=== PATIENT | male | born 1975 | race Caucasian/White ===

== ENCOUNTER 2020-01-20 16:44 | Emergency (ER) | payer OTHER ==
--- NOTE | 2020-01-20 18:50 | EDM.PDOC ---
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 He states that he was walking and fell down "somewhat hard" but got back up and was able to ambulate and really did not have much in the way of pain. Later on he noticed that he had a laceration about his patellar area. He notes that he was able to continue to ambulate just fine. He really did not have any pain at all with this. There is no significant bleeding. Interestingly, his pants had no evidence of any hole at all. This certainly help to exclude any contamination or foreign body. 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 His tetanus is up-to-date. He is reliable to return with any issues whatsoever in terms of his wound healing. He denies any other injury whatsoever including any head injury, loss of consciousness, or neck discomfort. Again, he has been able to fully ambulate, flex and extend his knee , and has really no pain to his patella as well as distal thigh or proximal lower leg musculoskeletal tissues whatsoever. Left Knee Pain Score (Numeric/FACES): 2 - Related Data Allergies Allergy/AdvReac Type Severity Reaction Status Date / Time No Known Allergies Allergy Verified 01/20/20 17:13 Home Meds: Home Meds atorvaSTATin [Lipitor] 40 mg PO DAILY 01/20/20 [History] lisinopriL [Zestril] 10 mg PO DAILY 01/20/20 [History] Past Medical History - Past Health History Medical/Surgical History: Denies Medical/Surgical History Cardiovascular History: Reports: High Cholesterol, Hypertension Social & Family History - Family History Family Medical History: Noncontributory ED ROS GENERAL - Review of Systems Review Of Systems: See Below Constitutional: Reports: No Symptoms Musculoskeletal: Reports: No Symptoms. Denies: Joint Swelling, Muscle Pain, Muscle Stiffness Neurological: Reports: No Symptoms ED EXAM, SKIN/RASH Exam: See Below Exam Limited By: No Limitations General Appearance: Alert, WD/WN, No Apparent Distress Eye Exam: Bilateral Eye: EOMI, Normal Inspection Ears: Normal External Exam, Hearing Grossly Normal Nose: Normal Inspection Throat/Mouth: Normal Inspection Head: Atraumatic, Normocephalic Neck: Normal Inspection, Supple, Non-Tender, Full Range of Motion Respiratory/Chest: No Respiratory Distress GI/Abdominal: No Distention Back Exam: Normal Inspection Extremities: Non-Tender, Normal Capillary Refill Neurological: Alert, Oriented, Normal Cognition, Normal Gait, No Motor/Sensory Deficits Psychiatric: Normal Affect, Normal Mood Skin: Wound/Incision (Inspection of his knee reveals an 8 cm x 6-1/2 cm flap with apex pointing medially along the lower half of his patellar area. This flap appears to have excellent perfusion in terms of the triangular apex. This extends below the subcutaneous fat layer and just encroaches along the most superficial layer of fascia. This wound was quite clean without any active bleeding, and I was able to retract the flap and visualize that there does not appear to be any further involvement in violating the joint capsule at all. His patellar tendon is palpated and active and passive range of motion of his knee is complete. Ligaments are intact to distraction. His patella is palpated and there is no tenderness. There is no other bony tenderness to careful palpation around his entire knee. Inspection of the wound reveals no foreign bodies or contamination. The flap actually falls back into place nicely. I anesthetized the wound with 3 mL's of lidocaine with epinephrine mixed with 7 mL's of bupivacaine. The patient tolerated this well. ). No: Cool, Cyanosis, Ecchymosis, Erythema, Excoriations Course - Vital Signs Last Recorded V/S: Last Vital Signs Temp 98 F 01/20/20 17:32 Pulse 88 01/20/20 18:15 Resp 20 01/20/20 17:32 BP 150/90 H 01/20/20 18:15 Pulse Ox 100 01/20/20 17:32 Departure - Departure Time of Disposition: 18:00 Disposition: Home, Self-Care 01 Clinical Impression: Laceration - Discharge Information *PRESCRIPTION DRUG MONITORING PROGRAM REVIEWED*: No *COPY OF PRESCRIPTION DRUG MONITORING REPORT IN PATIENT ASAD: No Instructions: Laceration Care, Adult Referrals: PCP,None [Primary Care Provider] - Forms: ED Department Discharge Care Plan Goals: Return to ER tuesday to have sutures removed Sepsis Event Note - Evaluation Sepsis Screening Result: No Definite Risk - Focused Exam Date Exam was Performed: 01/23/20 Time Exam was Performed: 01:16
== END 2020-01-20 18:20 | disposition home or self-care (01) ==
LOC: LB.ED 16:44
DX: S81.012A Laceration without foreign body, left knee, initial encounter (principal); E78.00 Pure hypercholesterolemia, unspecified; I10 Essential (primary) hypertension; Z79.899 Other long term (current) drug therapy; W26.8XXA Contact with other sharp object(s), not elsewhere classified, initial encounter
CPT/HCPCS: 12004; 99282